=== PATIENT | female | born 1985 | race African-American/Black ===

== ENCOUNTER 2018-12-16 12:38 | Emergency (ER) | payer SELFPAY ==
[2018-12-16] MEDS ORDERED: FENTANYL CITR 100 MCG/2 ML ONE (12:58)
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
[2018-12-16] MEDS ORDERED: DIAZEPAM 5 MG TABLET ONE (14:00)
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
[2018-12-16 14:57] VITALS: TEMP 97.9
[2018-12-16 14:58] VITALS: O2SAT 100
[2018-12-16 15:00] VITALS: BP 126/86
== END 2018-12-16 14:43 | disposition home or self-care (01) ==
LOC: ER 12:38
DX: M47.9 Spondylosis, unspecified (principal); M79.10 Myalgia, unspecified site; S09.90XA Unspecified injury of head, initial encounter; V49.40XA Driver injured in collision with unspecified motor vehicles in traffic accident, initial encounter; Z72.0 Tobacco use
CPT/HCPCS: 70450; 72100; 72125; 96372; 99285; J3010